=== PATIENT | female | born 1950 | race Caucasian/White ===

== ENCOUNTER 2018-03-01 04:52 | Observation (INO) | payer MEDICARE ==
[~2018-03-01] VITALS: Ht 162.6 cm; Wt 85.0 kg
[~2018-03-01 04:52] MED LIST: AMLO5TAB22 PO; BLAC540C3 PO; BUPR-197 PO; BUSP30TA PO; ESTR42.5V PV; GLUCTAB PO; HYDR-2768 PO; LANTUS2P SC; VITA20003 PO; ZOCO40TA PO
[2018-03-01 04:55] VITALS: BP 178/81; PULSE 82; RESP 16; TEMP 98.2; O2SAT 97
[2018-03-01] MEDS ORDERED: WELLTAB39 PO (05:18)
[2018-03-01] MEDS ORDERED: LANTUS2P SQ (05:18)
[2018-03-01] MEDS ORDERED: HYDR25TA5 PO ×2 (05:18→09:45)
[2018-03-01] MEDS ORDERED: VITA2000 PO (05:18)
[2018-03-01] MEDS ORDERED: METF500T PO (05:18)
[2018-03-01] MEDS ORDERED: AMLO2.5T PO (05:18)
[2018-03-01] MEDS ORDERED: NITR1CAP37 PO (05:18)
[2018-03-01] MEDS ORDERED: BUSP5TAB PO ×2 (05:18→09:45)
[2018-03-01] MEDS ORDERED: SIMV10TA PO (05:18)
--- NOTE | 2018-03-01 05:25 | PD ---
HPI Chief Complaint: Abdominal Pain Time Seen by Provider: 05:22 Travel History International Travel<30 days: No Contact w/Intl Traveler<30days: No Traveled to known affect area: No History of Present Illness HPI The patient is a 67 year old female who presents to the [facility] emergency department with a history of abdominal pain that began at midnight. It is intermittent and feels like labor pains. Her last BM was yesterday. 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 She has required multiple abdominal surgeries related to this. Her last bowel obstruction resolved nonoperatively in 2016. Her GI doctor is Dr. Hernandez. She reports that her pain is very similar to the pain she has had with prior obstructions. She denies having any known recent fevers, cough, congestion, neck pain, chest pain, shortness of breath, diarrhea , urinary symptoms, or neurologic symptoms. PFSH Past Medical History Narrative Medical The patient has a past medical history consisting of hypertension, hyperlipidemia, diabetes mellitus, depression, GI stromal tumor, history of recurrent bowel obstructions with multiple prior abdominal surgeries. Asthma: No Blood Disorders: No Anxiety: No Depression: Yes Heart Rhythm Problems: No Cancer: Yes (sm bowel CA) Cardiovascular Problems: Yes High Cholesterol: Yes Chemotherapy: No Chest Pain: No Congestive Heart Failure: No COPD: No Diabetes: Yes Patient Takes Glucophage: Yes (02/28/20182029) Diminished Hearing: Yes (hearing aids) Endocrine: Yes Gastrointestinal Disorders: Yes Genitourinary: Yes (frequent UTIs) Hypertension: Yes Immune Disorder: No Musculoskeletal: Yes Neurologic: No Psychiatric: Yes Reproductive: No Respiratory: No Radiation Therapy: No Sleep Apnea: No Thyroid Disease: Yes (hyperthyriodism) Ulcer: Yes Tetanus Vaccination: < 5 Years Influenza Vaccination: Yes ?: Not Past Surgical History Narrative Surgical The patient's past surgical history is significant for multiple prior abdominal surgeries with small bowel resections, mesh placement with hernia repair, hysterectomy, appendectomy, tonsil and adenoidectomy. Abdominal Surgery: Yes (bowel resections, hernia revisions, appy) Appendectomy: Yes Body Medical Devices: mesh from small bowel rescetions Gynecologic Surgery: Yes Hysterectomy: Yes Tonsillectomy: Yes (T&A) Other Surgery: Yes Social History Alcohol Use: Yes (socially) Tobacco Use: No Substance Use: No Allergies-Medications (Allergen,Severity, Reaction): Coded Allergies: ibuprofen (Unverified Allergy, Unknown, 03/01/18) Reported Meds & Prescriptions Reported Meds & Active Scripts Active Reported Vitamin D3 (Cholecalciferol) 2,000 Unit Cap 2,000 Units PO DAILY Lantus Inj (Insulin Glargine) 1,000 Unit/10 Ml Vial 8 Units SQ HS Nitrofurantoin Macrocrystal 50 Mg Cap 50 Mg PO DAILY Simvastatin 10 Mg Tab 10 Mg PO DAILY Buspirone (Buspirone HCl) 5 Mg Tab 5 Mg PO BID Metformin (Metformin HCl) 500 Mg Tab 500 Mg PO TIDPC Wellbutrin Xl 24 HR (Bupropion HCl) 300 Mg Tab 450 Mg PO DAILY Hydrochlorothiazide 25 Mg Tab 25 Mg PO BID Amlodipine (Amlodipine Besylate) 2.5 Mg Tab 7.5 Mg PO DAILY Review of Systems Except as stated in HPI: all other systems reviewed are Neg General / Constitutional: No: Fever Eyes: No: Visual changes HENT: No: Headaches Cardiovascular: No: Chest Pain or Discomfort Respiratory: No: Shortness of Breath Gastrointestinal: Positive: Nausea, Vomiting, Abdominal Pain, No: Diarrhea, Constipation, Changes in Bowel Habits, Indigestion, Loss of Appetite Genitourinary: No: Dysuria Musculoskeletal: No: Pain Skin: No Rash Neurologic: No: Weakness, Focal Abnormalities, Change in Mentation, Slurred Speech, Sensory Disturbance Psychiatric: No: Depression Endocrine: No: Polydipsia Hematologic/Lymphatic: No: Easy Bruising Physical Exam Narrative General: The patient is a well-developed well-nourished female in no acute distress, uncomfortable appearing on examination. Head and Neck exam: Head is normocephalic atraumatic. Eyes: EOMI, pupils are equal round and reactive to light. Nose: Midline septum with pink mucous membranes Mouth: Dentition unremarkable. Moist mucus membranes. Posterior oropharynx is not erythematous. No tonsillar hypertrophy. Uvula midline. Airway patent. Neck: No palpable lymphadenopathy. No nuchal rigidity. No thyromegaly. Cardiovascular: Regular rate and rhythm with a 1/6 systolic murmur, no gallops or rubs. Lungs: Clear to auscultation bilaterally. No wheezes, rhonchi, or rales. Abdomen: Soft, with tenderness on palpation along the area surrounding her umbilicus. Decreased bowel sounds are audible. No point tenderness on palpation of her McBurney's point. No guarding, rebound, or rigidity. Negative Lake sign. Extremities: No clubbing, cyanosis, or edema. 2+ pulses in all 4 extremities. No calf tenderness on palpation. Back: No spinous process tenderness to palpation. No costovertebral angle tenderness to palpation. Neurologic Exam: Grossly nonfocal. Skin Exam: No rash noted. Intact skin that is warm and dry. Data Data Last Documented VS Vital Signs Date Time Temp Pulse Resp B/P (MAP) Pulse Ox O2 Delivery O2 Flow Rate FiO2 03/01/18 04:55 98.2 82 16 178/81 (113) 97 Orders Orders Electrocardiogram (03/01/18 05:22) Complete Blood Count With Diff (03/01/18 05:22) Comprehensive Metabolic Panel (03/01/18 05:22) Prothrombin Time / Inr (Pt) (03/01/18 05:22) Act Partial Throm Time (Ptt) (03/01/18 05:22) Lipase (03/01/18 05:22) Urinalysis - C+S If Indicated (03/01/18 05:22) Magnesium (Mg) (03/01/18 05:22) Iv Access Insert/Monitor (03/01/18 05:22) Ecg Monitoring (03/01/18 05:22) Oximetry (03/01/18 05:22) Lactic Acid (03/01/18 05:22) Ct Abd/Pel W Iv Contrast(Rout) (03/01/18 05:40) Sodium Chlorid 0.9% 500 Ml Inj (Ns 500 M (03/01/18 05:45) Morphine Inj (Morphine Inj) (03/01/18 05:45) Ondansetron Inj (Zofran Inj) (03/01/18 05:45) Morphine Inj (Morphine Inj) (03/01/18 06:45) Insert Ng Tube (03/01/18 06:40) Admit Order (Ed Use Only) (03/01/18 06:49) Place In Observation (03/01/18 ) Vital Signs (Adult) Q4H (03/01/18 06:48) Activity Oob With Assistance (03/01/18 06:48) Diet Npo (03/01/18 Breakfast) Sodium Chlor 0.9% 1000 Ml Inj (Ns 1000 M (03/01/18 06:48) Sodium Chloride 0.9% Flush (Ns Flush) (03/01/18 07:00) Sodium Chloride 0.9% Flush (Ns Flush) (03/01/18 09:00) Ondansetron Inj (Zofran Inj) (03/01/18 07:00) Basic Metabolic Panel (Bmp) (03/02/18 06:00) Complete Blood Count With Diff (03/02/18 06:00) Scd Bilateral/Knee High LILIAN.BID (03/01/18 06:48) Naloxone Inj (Narcan Inj) (03/01/18 07:00) Docusate Sodium-Senna (Giana-Colace) (03/01/18 09:00) Magnesium Hydroxide Liq (Milk Of Magnesi (03/01/18 07:00) Sennosides (Senokot) (03/01/18 07:00) Bisacodyl Supp (Dulcolax Supp) (03/01/18 07:00) Lactulose Liq (Lactulose Liq) (03/01/18 07:00) Consult Gastroenterology (03/01/18 ) Morphine Inj (Morphine Inj) (03/01/18 07:00) Labs Laboratory Tests Test 03/01/18 05:42 03/01/18 06:00 White Blood Count 10.0 TH/MM3 Red Blood Count 5.19 MIL/MM3 Hemoglobin 14.8 GM/DL Hematocrit 43.6 % Mean Corpuscular Volume 84.1 FL Mean Corpuscular Hemoglobin 28.5 PG Mean Corpuscular Hemoglobin Concent 33.9 % Red Cell Distribution Width 13.2 % Platelet Count 266 TH/MM3 Mean Platelet Volume 7.6 FL Neutrophils (%) (Auto) 86.3 % Lymphocytes (%) (Auto) 5.3 % Monocytes (%) (Auto) 5.9 % Eosinophils (%) (Auto) 2.2 % Basophils (%) (Auto) 0.3 % Neutrophils # (Auto) 8.6 TH/MM3 Lymphocytes # (Auto) 0.5 TH/MM3 Monocytes # (Auto) 0.6 TH/MM3 Eosinophils # (Auto) 0.2 TH/MM3 Basophils # (Auto) 0.0 TH/MM3 CBC Comment DIFF FINAL Differential Comment Prothrombin Time 11.0 SEC Prothromb Time International Ratio 1.1 RATIO Activated Partial Thromboplast Time 24.3 SEC Blood Urea Nitrogen 20 MG/DL Creatinine 0.68 MG/DL Random Glucose 176 MG/DL Total Protein 7.7 GM/DL Albumin 3.8 GM/DL Calcium Level 8.8 MG/DL Magnesium Level 1.9 MG/DL Alkaline Phosphatase 95 U/L Aspartate Amino Transf (AST/SGOT) 12 U/L Alanine Aminotransferase (ALT/SGPT) 21 U/L Total Bilirubin 0.5 MG/DL Sodium Level 142 MEQ/L Potassium Level 3.6 MEQ/L Chloride Level 104 MEQ/L Carbon Dioxide Level 29.6 MEQ/L Anion Gap 8 MEQ/L Estimat Glomerular Filtration Rate 86 ML/MIN Lactic Acid Level 1.9 mmol/L Lipase 69 U/L Urine Color YELLOW Urine Turbidity CLOUDY Urine pH 7.5 Urine Specific [place] 1.016 Urine Protein NEG mg/dL Urine Glucose (UA) NEG mg/dL Urine Ketones TRACE mg/dL Urine Occult Blood NEG Urine Nitrite NEG Urine Bilirubin NEG Urine Urobilinogen LESS THAN 2.0 MG/DL Urine Leukocyte Esterase NEG Urine RBC 25 /hpf Urine WBC 3 /hpf Urine Squamous Epithelial Cells <1 /hpf Urine Amorphous Sediment RARE Urine Bacteria RARE /hpf Urine Mucus FEW /lpf Microscopic Urinalysis Comment CULT NOT INDICATED MDM Medical Decision Making Medical Screen Exam Complete: Yes Emergency Medical Condition: Yes Medical Record Reviewed: Yes Interpretation(s) Last Impressions Abdomen/Pelvis CT 03/01/18 0540 Signed Impressions: Service Date/Time: Thursday, March 01, 2018 06:47 - CONCLUSION: 1. There are some mildly diffusely dilated loops of proximal and mid small bowel. The distal small bowel is normal in diameter. These findings can be seen with a small bowel ileus versus partial obstruction. However, this pattern is not significantly changed compared to the prior exams of 03/02/2016 and 06/28/2015. 2. There is scattered diverticulosis of the descending and sigmoid colon without inflammatory changes. Monyt Blackwell MD Differential Diagnosis Recurrent small bowel obstruction, versus gastroenteritis, versus viral syndrome , versus ileus Narrative Course During the course of the patient's emergency department visit, the patient's history, examination, and differential diagnosis were reviewed with the patient. The patient was placed on a child monitor with oximetry and frequent blood pressure monitoring. The patient had IV access obtained and blood work sent for analysis. The patient had a EKG done on arrival that shows a sinus rhythm of 69, QRS duration 103 ms, QTC [address] segment elevation. The patient was initially provided normal saline IV fluids, morphine for pain, Zofran for nausea. The patient continued to have discomfort and was given a second dose of morphine. The patient will have an NG tube placed to low intermittent suction. The patient's laboratory studies were reviewed and remarkable for a white count of 10, hemoglobin 14.8, platelets 266 with 86.3 neutrophils, CMP is remarkable for BUN of 20, glucose 176, AST 12, lipase 69, lactic acid the normal limits at 1.9, PT PTT within normal limits., Urinalysis shows trace ketones 25 RBCs otherwise unremarkable per Radiology studies were reviewed and remarkable for Last Impressions Abdomen/Pelvis CT 03/01/18 0540 Signed Impressions: Service Date/Time: Thursday, March 01, 2018 06:47 - CONCLUSION: 1. There are some mildly diffusely dilated loops of proximal and mid small bowel. The distal small bowel is normal in diameter. These findings can be seen with a small bowel ileus versus partial obstruction. However, this pattern is not significantly changed compared to the prior exams of 03/02/2016 and 06/28/2015. 2. There is scattered diverticulosis of the descending and sigmoid colon without inflammatory changes. Monty Blackwell MD The patient's case was discussed with Dr. Aguilar at approximately 5:55 AM. He reports that his group will see the patient in consultation. The patient's results were discussed with the patient, including the plan of care. I explained that further testing and/ or monitoring is indicated based on the patient's history, examination, and/ or laboratory findings. Therefore, I recommended admission for additional evaluation. The patient expressed understanding and was agreeable with this plan. The patient was admitted to the hospital in stable condition and sent to a bed under the care of the [facility] service. Physician Communication Physician Communication The patient's case including history, pertinent physical examination findings, and laboratory studies were discussed with Dr. Danielson and Dr. Aguilar. It was agreed that the patient would be admitted to the [facility] hospitalist service. Diagnosis Primary Impression: SBO (small bowel obstruction) Admitting Information Admitting Physician Requests: Admit Myla Soliz MD Mar 01, 2018 05:25
[2018-03-01] MEDS ORDERED: ONDANSETRON HCL 4 MG/2 ML VIAL IV PUSH ONE (05:45)
[2018-03-01] MEDS ORDERED: SODIUM CHLORID 0.9% 500 ML INJ 500 ML IV ONE (05:45)
[2018-03-01] MEDS ORDERED: MORPHINE SULFATE 4 MG/ML INJ IV PUSH ONE ×2 (05:45→06:45)
[2018-03-01 05:57] LABS: AUTOMATED NEUTROPHIL # 8.6 TH/MM3 (1.8-7.7); BASOPHIL % 0.3 % (0.0-2.0); EOSINOPHIL # 0.2 TH/MM3 (0-0.4); EOSINOPHIL % 2.2 % (0.0-4.0); HEMATOCRIT 43.6 % (35.0-46.0); HEMOGLOBIN 14.8 GM/DL (11.6-15.3); LYMPH % 5.3 % (9.0-44.0); LYMPHOCYTE # 0.5 TH/MM3 (1.0-4.8); MEAN CELL VOLUME 84.1 FL (80.0-100.0); MEAN CORPUSCULAR HEMOGLOBIN 28.5 PG (27.0-34.0); MEAN CORPUSCULAR HGB CONC 33.9 % (32.0-36.0); MEAN PLATELET VOLUME 7.6 FL (7.0-11.0); MONO % 5.9 % (0.0-8.0); MONOCYTE # 0.6 TH/MM3 (0-0.9); NEUT % 86.3 % (16.0-70.0); PLATELET COUNT 266 TH/MM3 (150-450); RED BLOOD COUNT 5.19 MIL/MM3 (4.00-5.30); RED CELL DISTRIBUTION WIDTH 13.2 % (11.6-17.2)
[2018-03-01 06:09] LABS: INTERNATIONAL NORMALIZED RATIO 1.1 RATIO
[2018-03-01 06:11] LABS: AMORPHOUS SEDIMENT, URINE RARE; BACTERIA, URINE RARE /hpf; BILIRUBIN, URINE NEG (NEG); BLOOD, URINE NEG (NEG); GLUCOSE,URINE NEG (NEG); KETONE, URINE TRACE mg/dL (NEG); MUCUS URINE FEW /lpf (OCC); NITRITE,URINE NEG (NEG); PH, URINE 7.5 (5.0-8.5); SQUAMOUS EPITHELIAL CELL URINE <1 /hpf (0-5); URINE COLOR YELLOW (YELLW/STRAW); URINE LEUKOCYTE ESTERASE NEG (NEG)
[2018-03-01 06:18] LABS: ALBUMIN 3.8 GM/DL (3.4-5.0); ALT (GPT) 21 U/L (10-53); AST (GOT) 12 U/L (15-37); BICARBONATE 29.6 MEQ/L (21.0-32.0); BLOOD UREA NITROGEN 20 MG/DL (7-18); CALCIUM 8.8 MG/DL (8.5-10.1); CHLORIDE 104 MEQ/L (98-107); CREATININE 0.68 MG/DL (0.50-1.00); GLOMERULAR FILTRATION RATE 86 ML/MIN (>89); GLUCOSE,RANDOM 176 MG/DL (74-106); MAGNESIUM 1.9 MG/DL (1.5-2.5); SODIUM (NA) 142 MEQ/L (136-145)
[2018-03-01 06:20] LABS: ALKALINE PHOSPHATASE 95 U/L (45-117); TOTAL BILIRUBIN ADULT 0.5 MG/DL (0.2-1.0); TOTAL PROTEIN 7.7 GM/DL (6.4-8.2)
[2018-03-01] MEDS ORDERED: SODIUM CHLOR 0.9% 1000 ML INJ 1,000 ML IV SCH (06:48)
[2018-03-01] MEDS ORDERED: LACTULOSE SYRUP 20 GM/30 ML CUP PO PRN (07:00)
[2018-03-01] MEDS ORDERED: ONDANSETRON HCL 4 MG/2 ML VIAL IVP PRN (07:00)
[2018-03-01] MEDS ORDERED: SODIUM CHLORIDE 0.9% FLUSH 10 ML FLUSH IV FLUSH PRN (07:00)
[2018-03-01] MEDS ORDERED: SENNOSIDES 8.6 MG TAB PO PRN (07:00)
[2018-03-01] MEDS ORDERED: BISACODYL 10 MG SUPP RECTAL PRN (07:00)
[2018-03-01] MEDS ORDERED: NALOXONE HCL 0.4 MG/ML AMP IV PUSH PRN (07:00)
[2018-03-01] MEDS ORDERED: MAGNESIUM HYDROXIDE SUSP 30 ML CUP PO PRN (07:00)
[2018-03-01] MEDS ORDERED: IOHEXOL 350 MG/ML 10 ML VIAL (for RAD DIAG) IVCONTRAST ONE (07:01)
[2018-03-01 07:07] VITALS: O2SAT 99
--- NOTE | 2018-03-01 07:22 | RADRPT ---
EXAM DATE/TIME: 03/01/2018 06:47 [facility] COMPARISON: CT ABDOMEN & PELVIS W CONTRAST, July 08, 2015, 13:58. CT ABDOMEN & PELVIS W CONTRAST, March 02 16, 1:58. INDICATIONS : Mid abdominal pain. IV CONTRAST: 97 cc Omnipaque 350 (iohexol) IV ORAL CONTRAST: No oral contrast ingested. RADIATION DOSE: 10.76 CTDIvol (mGy) MEDICAL HISTORY : Carcinoma, colon. Hypertension. SURGICAL HISTORY : Appendectomy. Hysterectomy.Colon resection. ENCOUNTER: Initial ACUITY: 1 day PAIN SCALE: 5/10 LOCATION: anterior TECHNIQUE: Volumetric scanning of the abdomen and pelvis was performed. Using automated exposure control and ad justment of the mA and/or kV according to patient size, radiation dose was kept as low as reasonably achievable to obtain optimal diagnostic quality images. DICOM format image data is available electro nically for review and comparison. FINDINGS: LOWER LUNGS: The visualized lower lungs are clear. LIVER: Homogeneous density without lesion. There is no dilation of the biliary tree. No calcified gallston es. SPLEEN: Normal size without lesion. PANCREAS: Within normal limits. KIDNEYS: Normal in size and shape. There is no mass, stone or hydronephrosis. Stable small 1 cm cyst in the l ower pole left kidney. ADRENAL GLANDS: Within normal limits. VASCULAR: There is no aortic aneurysm. BOWEL/MESENTERY: On today's examination the stomach is nondilated. There is some mild dilatation of some proximal to m id small bowel loops. The distal small bowel is normal in diameter. The colon is within normal limits . There is stool throughout the colon. There is scattered diverticula along the sigmoid and descendin g colon without inflammatory changes. No free fluid or loculated fluid collections are demonstrated. These findings are stable compared to the prior examinations of 03/02/2016 and 07/08/2015. ABDOMINAL WALL: There is evidence of previous anterior abdominal hernia repair. No abdominal hernia is seen at this t yvonne. These findings are stable compared to the prior study. RETROPERITONEUM: There is no lymphadenopathy. BLADDER: No wall thickening or mass. REPRODUCTIVE: Within normal limits. INGUINAL: There is no lymphadenopathy or hernia. MUSCULOSKELETAL: Within normal limits for patient age. CONCLUSION: 1. There are some mildly diffusely dilated loops of proximal and mid small bowel. The distal small alfonso wel is normal in diameter. These findings can be seen with a small bowel ileus versus partial obstruc tion. However, this pattern is not significantly changed compared to the prior exams of 03/02/2016 and 06/28/2015. 2. There is scattered diverticulosis of the descending and sigmoid colon without inflammatory changes . Monty Blackwell MD on March 01, 2018 at 7:13 Board Certified Radiologist. This report was verified electronically.
--- NOTE | 2018-03-01 07:30 | EKG ---
Date Performed: 03/01/2018 Time Performed: 06:26:44 PTAGE: 67 years EKG: Sinus rhythm MARKED LEFT AXIS DEVIATION LOW QRS VOLTAGE IN PRECORDIAL LEADS POSSIBLE ANTERIOR MYOCARDIAL INFARCTI ON ABNORMAL ECG NO PREVIOUS TRACING DOCTOR: Osei Martínez Interpretating Date/Time 03/01/2018 07:29:46
[2018-03-01 08:00] VITALS: BP 149/70; PULSE 69; RESP 16; TEMP 98.2; O2SAT 96
[2018-03-01] MEDS: DOCUSATE SODIUM 50 MG/SENNA 8.6 MG TAB PO SCH ×2 (08:58→21:05)
[2018-03-01] MEDS: SODIUM CHLORIDE 0.9% FLUSH 10 ML FLUSH IV FLUSH SCH ×2 (08:58→21:05)
--- NOTE | 2018-03-01 09:38 | HHI.HP ---
[facility] Service [facility] Primary Care Physician Mariah Swenson, Admission Diagnosis Abdominal pain with history of recurrent bowel obstructions Diagnoses: Chief Complaint: abdominal pain Travel History International Travel<30 Days: No Contact w/Intl Traveler <30 Da: No Traveled to Known Affected Are: No History of Present Illness Written by Sophie Rahman, acting as scribe for Dr. Mack on 03/01/18 at 09:36. 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 The patient woke up with severe abdominal pains around midnight last night. She states the pain was very similar to her previous bowel obstructions. Pain located across epigastric region and bilateral upper quadrants described as intermittent sharp "rhythmic" contraction-like pains. She reports nausea and one episode of vomiting around 3:30am which is what prompted her to come to the ER. Her last BM was yesterday morning, described as normal, formed, nonbloody. Denies any hematemesis. Denies any recent night sweats or weight loss. Denies any lightheadedness, dizziness, chest pain, shortness of breath, diarrhea, or constipation. Last abdominal surgery 2008. Started getting frequent bowel obstructions in 2011 and typically treated with NG tube and bowel rest. Her senior teller is Dr. Hernandez. She has no other medical complaints at this time. 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 multiple reoccurring SBOs Past Surgical History Gastrointestinal stromal tumor resection 25 years ago Multiple subsequent abdominal surgeries for hernia repairs and lysis of adhesions, last surgery in 2008 Hysterectomy Bladder lift Appendectomy Tonsilloadenoidectomy Reported Medications Buspirone (Buspirone HCl) 5 Mg Tab 5 Mg PO DAILY 30 Days Hydrochlorothiazide 25 Mg Tab 25 Mg PO DAILY Vitamin D3 (Cholecalciferol) 2,000 Unit Cap 2,000 Units PO DAILY Lantus Inj (Insulin Glargine) 1,000 Unit/10 Ml Vial 8 Units SQ HS Nitrofurantoin Macrocrystal 50 Mg Cap 50 Mg PO DAILY Simvastatin 10 Mg Tab 10 Mg PO DAILY Metformin (Metformin HCl) 500 Mg Tab 500 Mg PO TIDPC Wellbutrin Xl 24 HR (Bupropion HCl) 300 Mg Tab 450 Mg PO DAILY Amlodipine (Amlodipine Besylate) 2.5 Mg Tab 7.5 Mg PO DAILY Allergies: Coded Allergies: ibuprofen (Unverified Allergy, Unknown, 03/01/18) Active Ordered Medications Current Medications Medications (Trade) Dose Ordered Sig/Dao Route Start Time Stop Time Status Last Admin Sodium Chloride 1,000 ml @ 100 mls/hr Q10H IV 03/01/18 06:48 03/01/18 07:13 (NS Flush) 2 ml UNSCH PRN IV FLUSH 03/01/18 07:00 (NS Flush) 2 ml BID IV FLUSH 03/01/18 09:00 (Zofran Inj) 4 mg Q6H PRN IVP 03/01/18 07:00 03/01/18 14:46 (Narcan Inj) 0.4 mg UNSCH PRN IV PUSH 03/01/18 07:00 (Giana-Colace) 1 tab BID PO 03/01/18 09:00 (Milk Of Magnesia Liq) 30 ml Q12H PRN PO 03/01/18 07:00 (Senokot) 17.2 mg Q12H PRN PO 03/01/18 07:00 (Dulcolax Supp) 10 mg DAILY PRN RECTAL 03/01/18 07:00 (Lactulose Liq) 30 ml DAILY PRN PO 03/01/18 07:00 (Morphine Inj) 2 mg Q3H PRN IV PUSH 03/01/18 07:00 03/01/18 14:47 Family History Family history significant for cancers, diabetes, heart disease. Father aged 69 with heart disease Mother age 78 with aortic aneurysm Social History She is retired nurse. Denies any tobacco use Drinks alcohol socially Denies any illicit drug use Physical Exam Vital Signs Vital Signs Date Time Temp Pulse Resp B/P (MAP) Pulse Ox O2 Delivery O2 Flow Rate FiO2 03/01/18 08:00 69 16 149/70 (96) 96 Room Air 03/01/18 07:07 99 Room Air 03/01/18 04:55 98.2 82 16 178/81 (113) 97 Physical Exam GENERAL: Well-nourished, well-developed middle aged female patient in [facility]. SKIN: Warm and dry. No rash. HEAD: Normocephalic. Atraumatic. EYES: Pupils equal and round. No scleral icterus. No injection or drainage. ENT: No nasal bleeding or discharge. Mucous membranes pink and moist. NECK: Supple. Trachea midline. CARDIOVASCULAR: Regular rate and rhythm. No murmur appreciated. RESPIRATORY: No accessory muscle use. Clear to auscultation. Breath sounds equal bilaterally. GASTROINTESTINAL: Abdomen soft, nondistended, diffuse upper abdominal tenderness to palpation. Normoactive bowel sounds x4. MUSCULOSKELETAL: No obvious deformities. Extremities without clubbing, cyanosis , or edema. NEUROLOGICAL: Awake and alert. No obvious cranial nerve deficits. Motor grossly within normal limits. Normal speech. PSYCHIATRIC: Appropriate mood and affect; insight and judgment normal. Laboratory Laboratory Tests Test 03/01/18 05:42 03/01/18 06:00 White Blood Count 10.0 Red Blood Count 5.19 Hemoglobin 14.8 Hematocrit 43.6 Mean Corpuscular Volume 84.1 Mean Corpuscular Hemoglobin 28.5 Mean Corpuscular Hemoglobin Concent 33.9 Red Cell Distribution Width 13.2 Platelet Count 266 Mean Platelet Volume 7.6 Neutrophils (%) (Auto) 86.3 Lymphocytes (%) (Auto) 5.3 Monocytes (%) (Auto) 5.9 Eosinophils (%) (Auto) 2.2 Basophils (%) (Auto) 0.3 Neutrophils # (Auto) 8.6 Lymphocytes # (Auto) 0.5 Monocytes # (Auto) 0.6 Eosinophils # (Auto) 0.2 Basophils # (Auto) 0.0 CBC Comment DIFF FINAL Differential Comment Prothrombin Time 11.0 Prothromb Time International Ratio 1.1 Activated Partial Thromboplast Time 24.3 Blood Urea Nitrogen 20 Creatinine 0.68 Random Glucose 176 Total Protein 7.7 Albumin 3.8 Calcium Level 8.8 Magnesium Level 1.9 Alkaline Phosphatase 95 Aspartate Amino Transf (AST/SGOT) 12 Alanine Aminotransferase (ALT/SGPT) 21 Total Bilirubin 0.5 Sodium Level 142 Potassium Level 3.6 Chloride Level 104 Carbon Dioxide Level 29.6 Anion Gap 8 Estimat Glomerular Filtration Rate 86 Lactic Acid Level 1.9 Lipase 69 Urine Color YELLOW Urine Turbidity CLOUDY Urine pH 7.5 Urine Specific [place] 1.016 Urine Protein NEG Urine Glucose (UA) NEG Urine Ketones TRACE Urine Occult Blood NEG Urine Nitrite NEG Urine Bilirubin NEG Urine Urobilinogen LESS THAN 2.0 Urine Leukocyte Esterase NEG Urine RBC 25 Urine WBC 3 Urine Squamous Epithelial Cells <1 Urine Amorphous Sediment RARE Urine Bacteria RARE Urine Mucus FEW Microscopic Urinalysis Comment CULT NOT INDICATED Result Diagram: 03/01/18 0542 03/01/1842 Imaging Last Impressions Abdomen/Pelvis CT 03/01/18539 Signed Impressions: Service Date/Time: Thursday, March 01, 2018 06:47 - CONCLUSION: 1. There are some mildly diffusely dilated loops of proximal and mid small bowel. The distal small bowel is normal in diameter. These findings can be seen with a small bowel ileus versus partial obstruction. However, this pattern is not significantly changed compared to the prior exams of 03/02/2016 and 06/28/2015. 2. There is scattered diverticulosis of the descending and sigmoid colon without inflammatory changes. Monty Blackwell MD Capcelestinei VTE Risk Assessment Caprini VTE Risk Assessment: Mod/High Risk (score >= 2) Caprini Risk Assessment Model Point Value = 1 Point Value = 2 Point Value = 3 Point Value = 5 Age 41-60 Minor surgery BMI > 25 kg/m2 Swollen legs Varicose veins or History of unexplained or recurrent spontaneous Oral contraceptives or hormone replacement Sepsis (< 1 month) Serious lung disease, including pneumonia (< 1 month) Abnormal pulmonary function Acute myocardial infarction Congestive heart failure (< 1 month) History of inflammatory bowel disease Medical patient at bed rest Age 61-74 Arthroscopic surgery Major open surgery (> 45 min) Laparoscopic surgery (> 45 min) Malignancy Confined to bed (> 72 hours) Immobilizing plaster cast Central venous access Age >= 75 History of VTE Family history of VTE Factor V Leiden Prothrombin [id number] Lupus anticoagulant Anticardiolipin antibodies Elevated serum homocysteine Heparin-induced thrombocytopenia Other congenital or acquired thrombophilia Stroke (< 1 month) Elective arthroplasty Hip, pelvis, or leg fracture Acute spinal cord injury (< 1 month) Prophylaxis Regimen Total Risk Factor Score Risk Level Prophylaxis Regimen 0-1 Low Early ambulation 2 Moderate Order ONE of the following: *Sequential Compression Device (SCD) *Heparin 5000 units SQ BID 3-4 Higher Order ONE of the following medications: *Heparin 5000 units SQ TID *Enoxaparin/Lovenox 40 mg SQ daily (WT < 150 kg, CrCl > 30 mL/min) *Enoxaparin/Lovenox 30 mg SQ daily (WT < 150 kg, CrCl > 10-29 mL/min) *Enoxaparin/Lovenox 30 mg SQ BID (WT < 150 kg, CrCl > 30 mL/min) AND/OR *Sequential Compression Device (SCD) 5 or more Highest Order ONE of the following medications: *Heparin 5000 units SQ TID (Preferred with Epidurals) *Enoxaparin/Lovenox 40 mg SQ daily (WT < 150 kg, CrCl > 30 mL/min) *Enoxaparin/Lovenox 30 mg SQ daily (WT < 150 kg, CrCl > 10-29 mL/min) *Enoxaparin/Lovenox 30 mg SQ BID (WT < 150 kg, CrCl > 30 mL/min) AND *Sequential Compression Device (SCD) Assessment and Plan Problem List: (1) SBO (small bowel obstruction) ICD Code: K56.69 - SBO (small bowel obstruction) Status: Acute Assessment and Plan 67-year-old female with history of HTN, HLD, DM, depression, chronic UTI, 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 Small Bowel Obstruction: likely secondary to adhesions. Presented with acute onset abd pain/nausea/vomiting. Afebrile, no leukocytosis, lactic acid 1.9. CT abd/pelvis reviewed shows some mildly diffusely dilated loops of proximal and mid small bowel likely small bowel ileus versus partial obstruction; However, not significantly changed compared to the prior exams of 03/02/2016 and 06/28/2015. Also scattered diverticulosis of the descending and sigmoid colon without inflammatory changes -Insert NG tube -Keep NPO, bowel rest -Encourage ambulation -Reverse Trendelenburg while in bed -Supportive treatment with IVF hydration, antiemetics prn, pain control with IV morphine prn -Consult patient's senior teller Dr. Hernandez, seen by Dr. Aguilar, appreciate recommendations -Monitor for improvement HTN/HLD: chronic, stable -continue patient's norvasc, statin when tolerating po -holding HCTZ for now -clonidine prn -patient did not tolerate JH inhibitors in the past due to cough and hair loss Diabetes Mellitus: chronic, stable -hold patient's lantus and metformin while NPO -monitor Accu-checks and cover with SSI Anxiety/Depression: chronic -continue patient's wellbutrin and buspirone Chronic UTI: chronic -continue patient's UTI prophylaxis with macrobid 50mg daily DVT Prophylaxis: teds/SCDs; avoid chemoprophylaxis incase surgery is needed Discussed Condition With Patient, B2B OUTSIDE SALES REPRESENTATIVE Attending Statement This note was transcribed by joshua Rahman. I, Dr. Fabricio Mack personally performed the history, physical exam, and medical decision making; and confirmed the accuracy of the information in the transcribed note. Authenticated by Dr. Fabricio Mack on 03/03/18 at 09:25. Sophie Rahman PA-C Mar 01, 2018 09:38 Fabricio Mack MD Mar 03, 2018 09:25
[2018-03-01] MEDS: MORPHINE SULFATE 2 MG/ML SYRINGE IV PUSH PRN ×4 (11:08→21:06)
--- NOTE | 2018-03-01 11:10 | MB ---
cc: Patrick Aguilar MD, Ketul R MD DATE: 03/01/2018 Cc: Mariah Swenson MD DATE OF : 1950 HISTORY OF PRESENT ILLNESS: The patient is a 67-year-old white female I was asked to see for further evaluation and management of small-bowel obstruction. 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 Since then, she has had several herniorrhaphies and multiple bouts of small-bowel obstruction, about every 1-2 years. Around midnight this morning she awoke with abdominal pain followed by vomiting of bilious fluid. The pain was centrally located. She came into the emergency room for these symptoms knowing this was a bowel obstruction. NG tube has been placed. She feels a bit better now. PAST MEDICAL HISTORY: Hypertension, diabetes, hyperlipidemia, depression. PAST SURGICAL HISTORY: The stromal tumor resection 25 years ago, herniorrhaphies 3-4 times, hysterectomy, bladder lift, appendectomy. MEDICATIONS ON ADMISSION: 1. Vitamin D3. 2. Lantus insulin. 3. Nitrofurantoin. 4. Simvastatin 10 mg daily. 5. Buspirone 5 mg b.i.d. or daily. 6. Metformin 500 mg t.i.d. 7. Wellbutrin 24-hour 300 mg or 450 mg daily. 8. Hydrochlorothiazide 25 mg daily. 9. Amlodipine 2.5 mg or 7.5 mg daily. ALLERGIES: IBUPROFEN. REVIEW OF SYSTEMS: She has had no recent headaches. No history of seizures or strokes. No vision difficulties. No dysphagia or odynophagia. Bowel movements have been normal up until this point. No history of chest pain. No respiratory difficulties or palpitations. No urinary symptoms. No jaundice. No pruritus. No unexplained weight loss. PHYSICAL EXAMINATION: VITAL SIGNS: Weight is 85 kg, temperature 98.2, pulse 82, blood pressure 178/81, saturation 97%, respiratory rate 16. GENERAL: She is alert. She is oriented x 3. She is only in minimal discomfort. The NG tube is in place. Nothing is draining at this point. HEENT: Extraocular motions are intact. NECK: I appreciate no submandibular, cervical, supraclavicular, axillary or epitrochlear adenopathy. LUNGS: Clear to auscultation. CARDIOVASCULAR: Regular rate and rhythm with a grade 0-1/6 systolic murmur. ABDOMEN: Normal bowel sounds that may be slightly high-pitched, but not much. No audible bruit. The abdomen is soft and there is tenderness centrally. EXTREMITIES: No pedal edema, Dupuytren's contractures or palmar erythema. FAMILY HISTORY: Mother had aortic aneurysm and pulmonary fibrosis. The grandmother had colon cancer at age 40. Diabetes in the family and heart disease. SOCIAL HISTORY: Occasional alcohol use. No tobacco use. LABORATORY DATA: White count 10.0, hemoglobin 14.8, platelets 266. INR 1.1. Sodium 142, potassium 3.6, BUN 20, creatinine 0.68. Liver enzymes normal. Lipase normal. IMAGING STUDIES: CT scan (I reviewed this with Dr. Chapa in radiology) reveals small-bowel obstruction with a transition at the right lateral aspect of the mesh in the pelvis. IMPRESSION AND PLAN: 1. Recurrent small-bowel obstruction, likely again due to adhesions. She has improved in the past with conservative therapy. Again, will continue NG tube drainage, n.p.o. status and bowel rest. She may ambulate. We will clamp the NG tube and check residuals every 2 hours. She should remain in the reverse Trendelenburg position while in bed. 2. History of colon polyps. Repeat colonoscopy due later this year per protocol as her last exam was performed almost 5 years ago. MD KASEY De La Fuente/JOURDAN , 10:45 AM , 11:09 AM
[2018-03-01 12:23] VITALS: BP 147/78; PULSE 68; RESP 17; TEMP 98.3; O2SAT 97
[2018-03-01] MEDS ORDERED: DEXTROSE 50% IN WATER 50 ML VIAL(D50) IV PUSH PRN (16:00)
[2018-03-01] MEDS ORDERED: GLUCAGON 1 MG/ML VIAL OTHER PRN (16:00)
[2018-03-01] MEDS: INSULIN ASPART SUPPLEMENTAL SCALE SQ SCH ×2 (17:00→21:00)
[2018-03-01 17:41] VITALS: BP 144/71; PULSE 73; RESP 18; TEMP 98.1; O2SAT 91
[2018-03-01] MEDS: D5-1/2 NS + KCL 20 MEQ INJ 1,000 ML IV SCH (17:50)
[2018-03-01] MEDS ORDERED: PILL SPLITTER OTHER PRN (18:00)
[2018-03-01 19:49] VITALS: BP 144/67; PULSE 67; RESP 12; TEMP 98.2; O2SAT 98
[2018-03-02 00:54] VITALS: BP 111/58; PULSE 98; RESP 14; TEMP 98.3; O2SAT 98
[2018-03-02] MEDS: D5-1/2 NS + KCL 20 MEQ INJ 1,000 ML IV SCH (03:21)
[2018-03-02 04:36] VITALS: BP 138/64; PULSE 65; RESP 12; TEMP 97.6; O2SAT 96
[2018-03-02 06:58] LABS: AUTOMATED NEUTROPHIL # 6.1 TH/MM3 (1.8-7.7); BASOPHIL % 0.2 % (0.0-2.0); EOSINOPHIL # 0.2 TH/MM3 (0-0.4); EOSINOPHIL % 2.4 % (0.0-4.0); HEMOGLOBIN 13.4 GM/DL (11.6-15.3); LYMPH % 7.6 % (9.0-44.0); LYMPHOCYTE # 0.6 TH/MM3 (1.0-4.8); MEAN CELL VOLUME 84.2 FL (80.0-100.0); MEAN CORPUSCULAR HEMOGLOBIN 28.9 PG (27.0-34.0); MEAN CORPUSCULAR HGB CONC 34.3 % (32.0-36.0); MEAN PLATELET VOLUME 7.8 FL (7.0-11.0); MONO % 7.3 % (0.0-8.0); MONOCYTE # 0.5 TH/MM3 (0-0.9); NEUT % 82.5 % (16.0-70.0); PLATELET COUNT 239 TH/MM3 (150-450); RED BLOOD COUNT 4.63 MIL/MM3 (4.00-5.30); RED CELL DISTRIBUTION WIDTH 13.3 % (11.6-17.2); WHITE BLOOD COUNT 7.4 TH/MM3 (4.0-11.0)
[2018-03-02 07:18] VITALS: BP 123/69; PULSE 72; RESP 18; TEMP 98.1; O2SAT 95
--- NOTE | 2018-03-02 07:33 | HHI.GIFU ---
GI Follow-up Note Consult Follow-up Subjective: Patient laying in bed comfortably, no new complaints. Passed flatus; she's been ambulating. No NGT output. Objective: PHYSICAL EXAMINATION: Vitals signs stable No fever HEENT: EOMI ABDOMEN: Soft, nondistended, minimally tender; good bowel sounds. RECEPTIONIST CLERK: alert and oriented times three. Available Data (labs, X- Rays, Procedues) : CBC noted, BMP pending. ASSESSMENT/PLAN:SBO, resolving. Will d/c NGT and start clear liquids. Continue ambulating; ok to d/c home once she passes stool. It was a pleasure seeing Erinn Mccullough Entered by: Patrick Coker MD Mar 02, 2018 07:33
[2018-03-02 07:39] LABS: BICARBONATE 24.7 MEQ/L (21.0-32.0); CALCIUM 8.1 MG/DL (8.5-10.1); CREATININE 0.6 MG/DL (0.50-1.00)
--- NOTE | 2018-03-02 07:42 | HHI.PR ---
Subjective Remarks Follow-up for a SBO. The patient reports feeling better again today. Still with some diffuse upper abdominal discomfort, however improved compared to yesterday. No output from the NG tube. She did pass some flatus overnight. She feels ready for the NG tube to be discontinued. Denies fevers or chills. She denies any other medical complaints at this time. Objective Vitals Vital Signs Date Time Temp Pulse Resp B/P (MAP) Pulse Ox O2 Delivery O2 Flow Rate FiO2 03/02/18 07:18 98.1 72 18 123/69 (87) 95 03/02/18 04:36 97.6 65 12 138/64 (88) 96 03/02/18 00:54 98.3 98 14 111/58 (75) 98 03/01/18 21:11 18 03/01/18 19:49 98.2 67 12 144/67 (92) 98 03/01/18 17:41 98.1 73 18 144/71 (95) 91 03/01/18 12:23 98.3 68 17 147/78 (101) 97 Room Air 03/01/18 08:00 98.2 69 16 149/70 (96) 96 Room Air I/O 03/01/18 03/01/18 03/01/18 03/02/18 03/02/18 03/02/18 07:00 15:00 23:00 07:00 15:00 23:00 Intake Total 500 ml Output Total 0 ml Balance 500 ml 0 ml Intake IV Total 500 ml Output Gastric Drainage Total 0 ml # Voids 2 Result Diagram: 03/02/18 0630 03/01/18 0542 Imaging Last Impressions Abdomen/Pelvis CT 03/01/18 0540 Signed Impressions: Service Date/Time: Thursday, March 01, 2018 06:47 - CONCLUSION: 1. There are some mildly diffusely dilated loops of proximal and mid small bowel. The distal small bowel is normal in diameter. These findings can be seen with a small bowel ileus versus partial obstruction. However, this pattern is not significantly changed compared to the prior exams of 03/02/2016 and 06/28/2015. 2. There is scattered diverticulosis of the descending and sigmoid colon without inflammatory changes. Monty Blackwell MD Objective Remarks GENERAL: Well-nourished, well-developed pleasant female patient in [facility]. SKIN: Warm and dry. No rash. HEENT: Normocephalic. Atraumatic.Pupils equal and round. Mucous membranes pink and moist. NG tube in place, no output. CARDIOVASCULAR: Regular rate and rhythm. S1, S2 noted. No murmur appreciated. RESPIRATORY: No accessory muscle use. Clear to auscultation. Breath sounds equal bilaterally. GASTROINTESTINAL: Abdomen soft, nondistended, mild diffuse upper abdominal TTP, improved. Normoactive bowel sounds x4. MUSCULOSKELETAL: No obvious deformities. Extremities without clubbing, cyanosis , or edema. NEUROLOGICAL: Awake and alert. No obvious cranial nerve deficits. Motor grossly within normal limits. Normal speech. PSYCHIATRIC: Appropriate mood and affect; insight and judgment normal. Medications and IVs Current Medications Medications (Trade) Dose Ordered Sig/Dao Route Start Time Stop Time Status Last Admin (NS Flush) 2 ml UNSCH PRN IV FLUSH 03/01/18 07:00 (NS Flush) 2 ml BID IV FLUSH 03/01/18 09:00 03/01/18 21:05 (Zofran Inj) 4 mg Q6H PRN IVP 03/01/18 07:00 03/01/18 14:46 (Narcan Inj) 0.4 mg UNSCH PRN IV PUSH 03/01/18 07:00 (Giana-Colace) 1 tab BID PO 03/01/18 09:00 03/01/18 21:05 (Milk Of Magnesia Liq) 30 ml Q12H PRN PO 03/01/18 07:00 (Senokot) 17.2 mg Q12H PRN PO 03/01/18 07:00 (Dulcolax Supp) 10 mg DAILY PRN RECTAL 03/01/18 07:00 (Lactulose Liq) 30 ml DAILY PRN PO 03/01/18 07:00 (Morphine Inj) 4 mg Q3H PRN IV PUSH 03/01/18 16:00 03/01/18 21:06 (Norvasc) 7.5 mg DAILY PO 03/02/18 09:00 (Wellbutrin Sr 12 Hr) 200 mg BID PO 03/02/18 09:00 (Buspar) 5 mg DAILY PO 03/02/18 09:00 (Vitamin D3) 2,000 units DAILY PO 03/02/18 09:00 (Macrobid) 100 mg DAILY PO 03/02/18 09:00 (Pravachol) 20 mg DAILY PO 03/02/18 09:00 (D50w (Vial) Inj) 50 ml UNSCH PRN IV PUSH 03/01/18 16:00 (Glucagon Inj) 1 mg UNSCH PRN OTHER 03/01/18 16:00 (NovoLOG SUPPLEMENTAL SCALE) 1 ACHS SLIDING SCALE SQ 03/01/18 17:00 Potassium Chloride/Dextrose/ Sod Cl 1,000 ml @ 100 mls/hr Q10H IV 03/01/18 17:21 03/02/18 03:21 (Pill Splitter) 1 ea UNSCH PRN OTHER 03/01/18 18:00 A/P Problem List: (1) SBO (small bowel obstruction) ICD Code: K56.69 - SBO (small bowel obstruction) Status: Acute Assessment and Plan 67-year-old female with history of HTN, HLD, DM, depression, chronic UTI, 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 Small Bowel Obstruction: likely secondary to adhesions. Presented with acute onset abd pain/nausea/vomiting. Afebrile, no leukocytosis, lactic acid 1.9. CT abd/pelvis reviewed shows some mildly diffusely dilated loops of proximal and mid small bowel likely small bowel ileus versus partial obstruction; However, not significantly changed compared to the prior exams of 03/02/2016 and 06/28/2015. Also scattered diverticulosis of the descending and sigmoid colon without inflammatory changes -Inserted NG tube -Keep NPO, bowel rest -Encourage ambulation -Reverse Trendelenburg while in bed -Supportive treatment with IVF hydration, antiemetics prn, pain control with IV morphine prn -Consult patient's youth specialist Dr. Hernandez, seen by Dr. Aguilar, appreciate recommendations -Patient improved today, no output from NGT, discussed with Dr. Aguilar, will remove NGT, advance diet to clear liquid, and if patient has a BM, may go home later today HTN/HLD: chronic, stable -continue patient's norvasc, statin when tolerating po -holding HCTZ for now -clonidine prn -patient did not tolerate JH inhibitors in the past due to cough and hair loss Diabetes Mellitus: chronic, stable -hold patient's lantus and metformin for now -monitor Accu-checks and cover with SSI Anxiety/Depression: chronic -continue patient's wellbutrin and buspirone Chronic UTI: chronic -continue patient's UTI prophylaxis with macrobid 50mg daily DVT Prophylaxis: teds/SCDs; avoid chemoprophylaxis incase surgery is needed Discharge Planning Possible discharge later today if tolerating oral intake and if patient has a BM. 1645hrs: Patient requesting to be discharged however still no BM. She is passing flatus and tolerating liquid diet. Azul DOE contacted Dr. Aguilar who states patient can be discharged, recommended high fiber diet, and outpatient follow up. Will discharge home. Discharge patient to home Condition on discharge: Stable Diabetic/High Fiber Diet as tolerated Ad Bonnie activity Rx written: none Follow-up with primary care physician and gastroenterology Sophie Rahman PA-C Mar 02, 2018 7:42 am
[2018-03-02] MEDS ORDERED: PRAVASTATIN SOD 20 MG TAB PO SCH (09:00)
[2018-03-02] MEDS ORDERED: CHOLECALCIFEROL (VIT D3) 1000 UNIT TAB PO SCH (09:00)
[2018-03-02] MEDS ORDERED: busPIRone HCL 5 MG TAB PO SCH (09:00)
[2018-03-02] MEDS ORDERED: buPROPion HCL 100 MG SUSTAINED RELEASE TAB PO SCH (09:00)
[2018-03-02] MEDS ORDERED: amLODIPine BESYLATE 5 MG TAB PO SCH (09:00)
[2018-03-02] MEDS: SODIUM CHLORIDE 0.9% FLUSH 10 ML FLUSH IV FLUSH SCH (09:00)
[2018-03-02] MEDS ORDERED: NITROFURANTOIN MONOHYD MACROCR 100 MG CAP PO SCH (09:00)
[2018-03-02] MEDS: INSULIN ASPART SUPPLEMENTAL SCALE SQ SCH ×2 (09:02→12:00)
[2018-03-02] MEDS: DOCUSATE SODIUM 50 MG/SENNA 8.6 MG TAB PO SCH (09:04)
[2018-03-02 11:39] VITALS: BP 113/61; PULSE 67; RESP 18; TEMP 98.4; O2SAT 95
[2018-03-02 15:40] VITALS: BP 122/56; PULSE 66; RESP 18; TEMP 98.5; O2SAT 96
--- NOTE | 2018-03-02 16:49 | HHI.DCPOC ---
Discharge Care Plan Diagnosis: (1) SBO (small bowel obstruction) (2) Abdominal pain Goals to Promote Your Health * To prevent worsening of your condition and complications * To maintain your health at the optimal level Directions to Meet Your Goals Take your medications as prescribed Follow your dietary instruction Follow activity as directed Keep your appointments as scheduled Take your immunizations and boosters as scheduled If your symptoms worsen call your PCP, if no PCP go to Urgent Care Center or Emergency Room Smoking is Dangerous to Your Health. Avoid second hand smoke Call the 24-hour hour crisis hotline for domestic abuse at Sophie Rahman PA-C Mar 02, 2018 4:49 pm
== END 2018-03-02 18:24 | disposition home or self-care (01) ==
LOC: NEPC 04:52 → NEDA 06:51 → NEDH 11:21 → NEPHCDU 15:12
PROVIDERS: ADMIT Internal Medicine; ATTEND Internal Medicine
DX: K56.699 Other intestinal obstruction unspecified as to partial versus complete obstruction (principal); N39.0 Urinary tract infection, site not specified; K57.30 Diverticulosis of large intestine without perforation or abscess without bleeding; I10 Essential (primary) hypertension; E78.00 Pure hypercholesterolemia, unspecified; E11.9 Type 2 diabetes mellitus without complications; E78.5 Hyperlipidemia, unspecified; E05.90 Thyrotoxicosis, unspecified without thyrotoxic crisis or storm; F32.9 Major depressive disorder, single episode, unspecified; F41.9 Anxiety disorder, unspecified; H91.90 Unspecified hearing loss, unspecified ear; Z79.899 Other long term (current) drug therapy; Z79.84 Long term (current) use of oral hypoglycemic drugs; Z86.010 Personal history of colon polyps
CPT/HCPCS: 74177; 80048; 80053; 81001; 82948; 83605; 83690; 83735; 85025; 85610; 85730; 93005; 96361; 96372; 96374; 96375; 96376; 99285; G0378; J1815; J2270; J2405; J3480; J7030; J7040; Q9967